=== PATIENT | male | born 1980 | race Caucasian/White ===

== ENCOUNTER → 2017-10-01 | Outpatient (CLI) | payer BC ==
[~2017-10-01] MED LIST: MULT-513 PO
--- NOTE | 2017-10-01 16:04 | DIAGNOSTIC IMAGING REPORT ---
FACIAL BONES MIN 3 VIEWS RTN CLINICAL HISTORY: Nasal injury. COMPARISON STUDY: No previous studies for comparison. FINDINGS: No facial bone fracture is identified by radiography. Sinuses appear clear. IMPRESSION: No facial fracture identified. Electronically signed by: Steven Mcmillan M.D. 10/01/2017 4:02 PM Dictated Date/Time: 10/01/2017 3:56 PM
== END | disposition home or self-care (01) ==
LOC: C.RAD1850 15:38
PROVIDERS: ATTEND Family Medicine
DX: S09.92XA Unspecified injury of nose, initial encounter (principal); X58.XXXA Exposure to other specified factors, initial encounter

== ENCOUNTER 2017-11-12 16:43 | Emergency (ER) | payer BC, OTHER ==
[~2017-11-12] VITALS: Ht 177.8 cm; Wt 99.0 kg
[2017-11-12 16:56] VITALS: TEMP 36.5; Ht 177.8 cm; Wt 99.0 kg
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
[2017-11-12 18:30] VITALS: BP 135/87; PULSE 71; O2SAT 99
== END 2017-11-12 18:30 | disposition home or self-care (01) ==
LOC: C.EDB 16:45 → C.EDD 18:30
DX: S02.2XXA Fracture of nasal bones, initial encounter for closed fracture (principal); W22.8XXA Striking against or struck by other objects, initial encounter; Y93.89 Activity, other specified; Y99.8 Other external cause status